=== PATIENT | female | born 2000 | race Caucasian/White ===

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

== ENCOUNTER → 2020-09-19 | Emergency (ER) | payer OTHER ==
[~2020-09-19] VITALS: Ht 160 cm; Wt 63.6 kg
[~2020-09-19] MED LIST changes: +PREDNISONE20 MG PO
== END ==
LOC: COL.ER 18:08
DX: R07.9 Chest pain, unspecified (principal); F41.9 Anxiety disorder, unspecified

== ENCOUNTER 2020-12-14 02:23 | Emergency (ER) | payer OTHER ==
[~2020-12-14] VITALS: Ht 160 cm; Wt 63.6 kg
[2020-12-14 02:26] VITALS: TEMP 97.5
[2020-12-14] MEDS ORDERED: MOTRIN 400400 MG/TAB PO (03:20)
[2020-12-14] MEDS ORDERED: ROBAXIN 50500 MG/TAB PO (03:20)
[2020-12-14 03:26] VITALS: BP 119/72; PULSE 68
== END 2020-12-14 03:27 | disposition home or self-care (01) ==
LOC: COL.ER 02:23
DX: M94.0 Chondrocostal junction syndrome [Tietze] (principal); Z79.52 Long term (current) use of systemic steroids
CPT/HCPCS: J1885